=== PATIENT | female | born 2005 | race American Indian/Alaskan Native ===

== ENCOUNTER 2024-09-19 12:37 | Emergency (ER) | payer OTHER ==
[~2024-09-19] VITALS: Ht 160 cm; Wt 73.2 kg
[2024-09-19 12:42] VITALS: TEMP 98.6
[2024-09-19 16:02] VITALS: BP 119/78; O2SAT 99
== END 2024-09-19 16:02 | disposition home or self-care (01) ==
LOC: M ED 12:37
DX: S50.02XA Contusion of left elbow, initial encounter (principal); W01.0XXA Fall on same level from slipping, tripping and stumbling without subsequent striking against object, initial encounter; Y92.830 Public park as the place of occurrence of the external cause; Y93.67 Activity, basketball; Y99.9 Unspecified external cause status